=== PATIENT | male | born 1950 | race Caucasian/White ===

== ENCOUNTER 2022-11-25 08:28 | Outpatient (CLI) | payer BC, MEDICARE | END 2022-11-25 08:29 | disposition home or self-care (01) | LOC: CSHCT 08:28 | PROVIDERS: ATTEND Neurological Surgery | DX: S06.5X0D Traumatic subdural hemorrhage without loss of consciousness, subsequent encounter (principal); Z98.890 Other specified postprocedural states | CPT/HCPCS: 70450 ==

== ENCOUNTER 2023-01-13 08:31 | Outpatient (CLI) | payer BC, MEDICARE | END 2023-01-13 08:32 | disposition home or self-care (01) | LOC: CSHCT 08:31 | PROVIDERS: ATTEND Student in an Organized Health Care Education/Training Program | DX: S06.5X0D Traumatic subdural hemorrhage without loss of consciousness, subsequent encounter (principal); I67.9 Cerebrovascular disease, unspecified | CPT/HCPCS: 70450 ==